=== PATIENT | female | born 1980 | race Caucasian/White ===

== ENCOUNTER 2016-08-20 10:41 | Emergency (ER) | payer OTHER ==
[2016-08-20 12:19] VITALS: BP 132/75
[2016-08-20] MEDS ORDERED: Ibuprofen TAB* 400 MG PO ONE (12:36)
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
--- NOTE | 2016-08-20 13:12 | RAD ---
INDICATION: Left ankle injury COMPARISON: None TECHNIQUE: AP, lateral, and oblique views were obtained. FINDINGS: There is a small avulsion fracture from the lateral malleolus with mild distraction. There are no other acute bony findings. There are old, healed, diaphyseal fractures of the tibia and fibula. The ankle mortise is intact. There is lateral soft tissue swelling. IMPRESSION: AVULSION FRACTURE FROM THE LATERAL MALLEOLUS
== END 2016-08-20 13:50 | disposition home or self-care (01) ==
LOC: UCEAST 10:41
DX: S82.832A Other fracture of upper and lower end of left fibula, initial encounter for closed fracture (principal); F32.9 Major depressive disorder, single episode, unspecified; Z88.2 Allergy status to sulfonamides; W51.XXXA Accidental striking against or bumped into by another person, initial encounter
CPT/HCPCS: 99212; A9270-GY; G0463

== ENCOUNTER 2019-03-23 04:13 | Emergency (ER) | payer OTHER ==
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
[2019-03-23] MEDS ORDERED: Ketorolac INJ* 30 MG/ML 1 ML VIAL IV PUSH ONE (04:48)
[2019-03-23] MEDS ORDERED: Ondansetron INJ* 2 MG/ML VIAL IV ONE (04:48)
[2019-03-23] MEDS ORDERED: NS 0.9% 1000 ML** 1,000 ML IV ONE (04:48)
[2019-03-23] MEDS ORDERED: Diazepam TAB(*) 5 MG PO ONE (05:33)
[2019-03-23] MEDS ORDERED: Metoclopramide IV* 5 MG/ML 2 ML VIAL IV SLOW PU ONE (06:07)
[2019-03-23 06:57] VITALS: BP 108/62
== END 2019-03-23 06:57 | disposition home or self-care (01) ==
LOC: ED 04:13
DX: R51 Headache (principal); M54.2 Cervicalgia; F32.9 Major depressive disorder, single episode, unspecified; Z88.2 Allergy status to sulfonamides
CPT/HCPCS: 96361; 96374; 96375; 99283; A9270-GY; J1885; J2405; J2765